=== PATIENT | female | born 1965 | race Caucasian/White ===

== ENCOUNTER 2017-12-09 14:39 | Emergency (ER) | payer OTHER ==
[~2017-12-09] VITALS: Ht 162.6 cm; Wt 131.5 kg
[2017-12-09] MEDS ORDERED: ATORVASTATIN CA10 MG PO (17:11)
[2017-12-09] MEDS ORDERED: ASPIRIN81 MG (17:14)
[2017-12-09] MEDS ORDERED: METFORMIN HCL500 MG PO (17:14)
[2017-12-09] MEDS ORDERED: ZYRTEC10 M3 (17:15)
== END 2017-12-09 18:45 | disposition home or self-care (01) ==
LOC: ER 14:39 → FSED 18:45
DX: R06.00 Dyspnea, unspecified (principal); R05 Cough; I10 Essential (primary) hypertension; E11.9 Type 2 diabetes mellitus without complications; E78.5 Hyperlipidemia, unspecified; Z85.3 Personal history of malignant neoplasm of breast
CPT/HCPCS: 71260; 80053; 85025; 99283

== ENCOUNTER 2018-10-06 12:50 | Emergency (ER) | payer OTHER ==
[~2018-10-06] VITALS: Ht 162.6 cm; Wt 131.5 kg
[~2018-10-06 12:50] MED LIST: ASPIRIN81 MG; ATORVASTATIN CA10 MG PO; METFORMIN HCL500 MG PO; ZYRTEC10 M3
--- OUTSIDE RECORDS SUMMARY | 2018-10-06 12:52 | XMS REPORT | Clinical Summary ---
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 Last Filed Vital Signs Not on file Plan of Treatment Not on file Results Not on fileafter 10/05/2017
[2018-10-06] MEDS ORDERED: MORPHINE SULFATE INJ 4 MG/ML INJ IV STA (13:13)
[2018-10-06] MEDS ORDERED: ONDANSETRON HCL INJ 2 MG/ML VIAL IV ONE (13:15)
[2018-10-06] MEDS ORDERED: FAMOTIDINE 20 MG/2 ML VIAL IV ONE (13:15)
[2018-10-06] MEDS ORDERED: POTASSIUM CHLORIDE 20 MEQ TAB CR PO ONE (14:26)
[2018-10-06] MEDS ORDERED: SODIUM CHLORIDE 0.9% 1000ML 1,000 ML IV STA (14:30)
[2018-10-06 15:31] VITALS: BP 140/76
== END 2018-10-06 16:13 | disposition home or self-care (01) ==
LOC: FSED 12:50
DX: R10.33 Periumbilical pain (principal); R11.2 Nausea with vomiting, unspecified; R19.7 Diarrhea, unspecified; E86.0 Dehydration; E87.6 Hypokalemia; K52.9 Noninfective gastroenteritis and colitis, unspecified; A08.4 Viral intestinal infection, unspecified
CPT/HCPCS: 80048; 80076; 81003; 85025; 96374; 96375; 99284; J2270; J2405; J7030

== ENCOUNTER → 2019-01-12 | Day surgery (SDC) | payer OTHER ==
[~2019-01-12] MED LIST changes: +AMOXICILLIN250 MG PO; +FLONASE; +LIDOCAINE HCL 2% LOCAL INJ 5 ML SDV VIAL INJ ONE; +METOPROLOL SUCC50 MG PO; +MUCINEX OTC PO; +NEXIUM20 MG PO; +PROPOFOL IV EMULSION 10 MG/ML 20 ML VIAL ONE
--- OUTSIDE RECORDS SUMMARY | 2019-01-12 06:37 | XMS REPORT | Clinical Summary ---
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
[2019-01-12 09:10] VITALS: BP 120/53
--- NOTE | 2019-01-21 01:19 | Operative Report ---
DATE OF PROCEDURE: 01/12/2019 SURGEON: Michael Lake MD PROCEDURE PERFORMED: Esophagogastroduodenoscopy. PREOPERATIVE DIAGNOSIS: Abdominal pain. POSTOPERATIVE DIAGNOSES: Gastritis and hiatal hernia. PREOPERATIVE MEDICATION: Consisted of general anesthesia. PROCEDURE IN DETAIL: Using an Olympus Lontra video gastroscope, it was entered into the patient's oropharynx, advanced to the hypopharynx, and down to the esophagus. The mucosa down in the esophagus was normal. There was a small hiatal hernia from 38 to 39 cm with no evidence of reflux esophagitis was found. The stomach was entered and insufflated with air. The mucosa spreading the cardia, fundus, body, and antrum was viewed. There was evidence of gastritis, but no evidence of any ulcerations. Biopsy was obtained in the antrum and fundus looking for the H pylori infection. The pylorus was visualized and entered. The duodenal bulb and first part of the duodenum were found to be within normal limits. The endoscope was then withdrawn back up into the stomach, retroflexed Again, there was mild gastritis present. Again, the scope was then placed back into the body of the stomach and then slowly withdrawn back up into the esophagus, hypopharynx, oropharynx, and out of the patient's mouth and procedure was ended. In completion, there were findings of gastritis and a hiatal hernia. PLAN: Plan is to have her remain on the Prilosec 40 mg once every morning, bland diet, and follow up in the office in 1 week. Michael Lake MD SAF/MODL /[id number]
== END | disposition home or self-care (01) ==
LOC: OR 06:35
PROVIDERS: ATTEND Internal Medicine Gastroenterology
DX: K29.70 Gastritis, unspecified, without bleeding (principal); K44.9 Diaphragmatic hernia without obstruction or gangrene; K21.0 Gastro-esophageal reflux disease with esophagitis; K76.0 Fatty (change of) liver, not elsewhere classified; G47.33 Obstructive sleep apnea (adult) (pediatric); I48.91 Unspecified atrial fibrillation; E78.5 Hyperlipidemia, unspecified; E11.9 Type 2 diabetes mellitus without complications; J40 Bronchitis, not specified as acute or chronic; Z88.1 Allergy status to other antibiotic agents; Z88.7 Allergy status to serum and vaccine; Z79.82 Long term (current) use of aspirin; Z79.84 Long term (current) use of oral hypoglycemic drugs; Z68.42 Body mass index [BMI] 45.0-49.9, adult
CPT/HCPCS: 36415; 43239; 82948; J2001; J2704

== ENCOUNTER → 2019-06-08 | Day surgery (SDC) | payer OTHER ==
[~2019-06-08] MED LIST changes: +GLIPIZIDE5 MG PO; -LIDOCAINE HCL 2% LOCAL INJ 5 ML SDV VIAL INJ ONE; +MIDAZOLAM HCL 2 MG/2 ML VIAL ONE; -ZYRTEC10 M3; +ZYRTEC10 M3 PO
--- OUTSIDE RECORDS SUMMARY | 2019-06-08 11:12 | XMS REPORT | Clinical Summary ---
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
[2019-06-08 14:00] VITALS: BP 131/69
--- NOTE | 2019-06-08 15:53 | Operative Report ---
DATE OF PROCEDURE: 06/08/2019 SURGEON: Michael Lake MD PROCEDURE PERFORMED: Colonoscopy. PREOPERATIVE DIAGNOSIS: History of colon polyps. POSTOPERATIVE DIAGNOSIS: History of colon polyps, none found. PREOERATIVE MEDICATIONS: Consisted of IV sedation administered under MAC anesthesia. PROCEDURE IN DETAIL: Using an Olympus MiArch video colonoscope, it was inserted in the patient's rectum and advanced without difficulty to the level of the cecum. The colon was studied from that level back down to the rectum. No polypoid lesions, tumor, masses or inflammatory changes were found. No diverticula were seen. No bleeding lesions were found. The colonoscope was withdrawn from the patient's rectum and the procedure was ended. Michael Lake MD SAF/MODL /[id number]
== END | disposition home or self-care (01) ==
LOC: OR 11:10
PROVIDERS: ATTEND Internal Medicine Gastroenterology
DX: Z09 Encounter for follow-up examination after completed treatment for conditions other than malignant neoplasm (principal); Z87.19 Personal history of other diseases of the digestive system; K21.0 Gastro-esophageal reflux disease with esophagitis; K44.9 Diaphragmatic hernia without obstruction or gangrene; I44.0 Atrioventricular block, first degree; E11.9 Type 2 diabetes mellitus without complications; J45.909 Unspecified asthma, uncomplicated; G47.33 Obstructive sleep apnea (adult) (pediatric); I48.91 Unspecified atrial fibrillation; F41.9 Anxiety disorder, unspecified; Z88.2 Allergy status to sulfonamides; Z88.1 Allergy status to other antibiotic agents; Z88.8 Allergy status to other drugs, medicaments and biological substances; Z01.810 Encounter for preprocedural cardiovascular examination; Z79.82 Long term (current) use of aspirin; Z79.84 Long term (current) use of oral hypoglycemic drugs; Z68.42 Body mass index [BMI] 45.0-49.9, adult; Z80.0 Family history of malignant neoplasm of digestive organs
CPT/HCPCS: 36415; 45378; 82948; 93005; J2250; J2704